=== PATIENT | female | born 1980 | race African-American/Black ===

== ENCOUNTER 2021-11-15 13:05 | Emergency (ER) | payer MEDICAID ==
[~2021-11-15] VITALS: Ht 165.1 cm; Wt 64.0 kg
[2021-11-15] MEDS ORDERED: ACETAMINOPHEN 325MG TABLET PO ONE ×2 (13:30→13:45)
[2021-11-15] MEDS ORDERED: ACET-2708 MT (16:31)
[2021-11-15 18:25] VITALS: BP 114/70
== END 2021-11-15 18:48 | disposition home or self-care (01) ==
LOC: ER 13:05
DX: R07.89 Other chest pain (principal); V98.8XXA Other specified transport accidents, initial encounter; Y93.89 Activity, other specified; Y92.89 Other specified places as the place of occurrence of the external cause; Y99.8 Other external cause status
CPT/HCPCS: 71045; 93005; 99283